=== PATIENT | male | born 1930 | race Caucasian/White ===

== ENCOUNTER 2018-12-12 12:21 | Emergency (ER) | payer OTHER, SELFPAY ==
[~2018-12-12 12:21] MED LIST: ISOVUE-370 76%-LOCM 1 ML ONE
[2018-12-12 12:59] LABS: #Eosinphils 0.1 thou/uL (0.0-0.7); #Lymphocytes 2.2 thou/uL (1.20-3.40); #Monocytes 0.3 thou/uL (0.11-0.59); #Neutrophils 10.7 thou/uL (1.40-6.50); %Basophils 0.4 % (0.0-1.0); %Eosinophils 0.6 % (0.0-10.0); %Lymphocytes 16.5 % (21.0-51.0); %Monocytes 2.3 % (0.0-10.0); %Neutrophils 80.3 % (42.0-75.0); Mean Corpuscular HGB CONC 34.1 g/dL (32.0-36.0); Mean Corpuscular Hemoglobin 29.7 pg (27.0-31.0); Mean Platelet Volume 6.7 fL (7.4-10.4); Platelet Count 369 thou/uL (130-400); RBC Distribution Width 12.5 % (11.5-14.5); Red Blood Cell (RBC) Count 5.06 mill/uL (4.70-6.10); White Blood Cell (WBC) Count 13.3 thou/uL (4.8-10.8)
--- NOTE | 2018-12-12 13:52 | RAD ---
EXAM: CHEST ONE VIEW: 12/12/18 HISTORY: Hypoxia, nausea, vomiting, diarrhea, wheezing. COMPARISON: None. FINDINGS: Increased bronchovascular markings noted bilaterally particularly in the infrahilar regions. Old gran ulomatous disease. I cannot exclude the possibility of some minimal bibasilar acute parenchymal skinner es including atypical pneumonia or pneumonitis and/or some subsegmental atelectasis. Upper lung zones appear clear. Heart size is within normal limits. IMPRESSION: 1. Increased markings in the infrahilar regions bilaterally, nonspecific as above. 2. Old granulomatous disease. 3. Atherosclerosis o the aorta. 4. No old studies for comparison. If there is concern for acute pneumonitis, treatment and short term follow-up for clearing or stabili ty is suggested. POS: OFF
[2018-12-12] MEDS ORDERED: Sodium Chloride 0.9% 100 ML ONE (13:56)
[2018-12-12] MEDS ORDERED: Cefepime 2 GM VIAL ONE (13:56)
[2018-12-12] MEDS ORDERED: metroNIDAZOLE 500 MG/100 ML BAG ONE (13:57)
[2018-12-12 13:59] LABS: Bilirubin Negative (Negative); Blood, Urine Negative (Negative); Clarity Clear (Clear); Glucose, Urine (Dipstick) 200 mg/dL (Negative); Leukocyte Negative Leu/uL (Negative); Nitrite Negative (Negative); Protein, Urine (Dipstick) 20 mg/dL (Neg-Trace)
[2018-12-12 14:31] LABS: ALT (SGPT) 11 U/L (8-55); AST (SGOT) 20 U/L (5-34); Albumin 3.9 g/dL (3.4-4.8); Alkaline Phosphatase 85 U/L (40-150); Anion Gap 19 mmol/L (10-20); BUN (Urea Nitrogen) 27 mg/dL (8.4-25.7); Bilirubin, Total 0.7 mg/dL (0.2-1.2); Calc. Creatinine Clearance 0 mL/min (70-130); Calcium 8.3 mg/dL (7.8-10.44); Carbon Dioxide 15 mmol/L (23-31); Chloride 105 mmol/L (98-107); Estimated GFR-MDRD 39; Glucose 351 mg/dL (83-110); Potassium 3.9 mmol/L (3.5-5.1); Protein, Total 6.9 g/dL (5.8-8.1); Sodium 135 mmol/L (136-145)
--- NOTE | 2018-12-12 15:33 | CT ---
CT Brain WO Con History: Altered mental status Comparison: CT brain December 2017 Findings: No acute hemorrhage or infarct. Moderate atrophy. Old lacunar infarcts. No midline shift. No mass effect. The paranasal sinuses and mastoids are clear. Globes are intact. Impression: Chronic findings. No acute intracranial abnormality.
--- NOTE | 2018-12-12 15:39 | CT ---
CT Abdomen Pelvis W Con History: Abdominal pain. Nausea and vomiting Comparison: None. Findings: Patchy opacities in both lower lobes. 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 Large sliding hiatal hernia. There is a diverticulum near the gastric fundus. Enlarged perigastric ly mph nodes which are herniated in the thoracic cavity. Liver is unremarkable as well as the spleen. Pancreas has mild fatty atrophy throughout its parenchym a. No intrahepatic or extra hepatic biliary dilatation. The rectum and rectosigmoid junction is markedly thickened with large volume gas and stool there is a lso stranding in the sigmoid mesentery. This suggests high-grade colitis and proctitis. Mild edema within the mesorectal fat. Unformed stool throughout the colon. Inferior mesenteric artery appears be patent at least proximally. No free intraperitoneal gas. Moderate distention of the urinary bladder. No retroperitoneal periaorti c adenopathy. Hypodensity anterior cortex interpolar left kidney with fluid characteristics of a cyst. Same is true for left inferior renal hypodensity. No aneurysmal dilatation of the aorta. Bilateral fat-containing direct inguinal hernias. Impression: 1. Abnormal dilatation of the rectum and rectosigmoid junction with surrounding edema suggesting coli tis. There is unformed stool throughout the colon also corroborating this diagnosis. Given the large dilatation of the gas and stool filled rectum, disimpaction may be beneficial. 2. Scattered opacities within both lower lobes with large sliding hiatal hernia likely aspiration pne umonia.
[2018-12-12] MEDS ORDERED: HumaLOG 300 UNITS/3 ML VIAL SC PRN (15:40)
[2018-12-12] MEDS ORDERED: Acetaminophen 325 MG TAB PO PRN (15:40)
[2018-12-12] MEDS ORDERED: Acetaminophen 650 MG Suppository PR PRN (15:40)
[2018-12-12] MEDS ORDERED: Ondansetron PF 4 MG/2 ML Vial IVP PRN (15:40)
[2018-12-12] MEDS ORDERED: Guaifenesin DM 100-10/5 ML UDCUP PO PRN (15:40)
[2018-12-12] MEDS ORDERED: Dextrose 5% in Water 1,000 ML IV PRN (15:40)
[2018-12-12] MEDS ORDERED: Dextrose 50% Abboject 50 ML SYRINGE SLOW IVP PRN (15:40)
[2018-12-12] MEDS ORDERED: Sodium Chloride 0.9% 1,000 ML IV SCH (15:45)
--- NOTE | 2018-12-12 16:31 | HP ---
PRIMARY CARE PHYSICIAN: [facility]. REASON FOR ADMISSION: Sepsis, gastroenteritis, [id number] dehydration, acute metabolic acidosis, acute kidney injury, diabetes mellitus type 2 uncontrolled. HISTORY OF PRESENTING ILLNESS: Please note majority of this history is obtained by talking to the ER physician and the patient's sister and brother at bedside as the patient is not oriented at present. He apparently went to [employer] and had a hamburger and drank strawberry yogurt yesterday. Around midnight, the patient started to have profuse diarrhea. He started to vomit this morning and felt very nauseous. His caregiver went to check on him this morning. He lives alone in [place]. The caregiver texted the patient's sister saying he did not look good and had diarrhea. After an hour or 2, the patient started to have more episodes of vomiting, retching, and slumped in his chair, he could not get up or walk. Then the caregiver called EMS and the patient was brought to emergency room. He normally ambulates by himself and does all his activities of daily living at home. He follows up with [facility] here in [place]. He had a temperature of 99 degrees in the ER. No complaints of chest pain, palpitation, PND, or orthopnea. The patient is currently slowly waking up and is able to recognize his son, and says that he has two children, both boy and a girl which are accurate. He trails off and soon falls asleep. 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 CURRENT MEDICATIONS: The patient is on; 1. Flomax 0.4 mg p.o. at bedtime. 2. Finasteride 1 mg p.o. q.a.m. 3. Aspirin 81 mg p.o. daily. 4. Glipizide 5 mg p.o. twice daily. 5. Amlodipine 2.5 mg p.o. daily. The daughter at bedside is trying to get [facility] to fax over his current med list to the ER. PERSONAL HISTORY: Quit smoking more than 10 years ago. Does not abuse alcohol or drugs. He lives alone in [place]. FAMILY HISTORY: Mother in a snf. She had osteoarthritis. She was in her late 70s. Father of lung cancer at the age of 72 years, exposed to asbestos and was a heavy smoker as well. CODE STATUS: Full. Power of peer support specialist is his daughter, Ms. Harini Fuller, number to reach her is [phone]. REVIEW OF SYSTEMS: Cannot be obtained as the patient is very lethargic and is not oriented. PHYSICAL EXAMINATION: GENERAL: The patient is an 88-year-old male, who is currently very lethargic and is not oriented. VITAL SIGNS: Blood pressure 146/80, pulse 120 per minute, respiratory rate 18 per minute, temperature 97.8 degrees Fahrenheit, saturating 93% on room air. NECK: Supple. No elevated JVD. HEENT: Eyes; extraocular muscles intact. Pupils reacting to light. Oral cavity, mucous membranes are dry. No exudates or congestion. CARDIOVASCULAR: S1 and S2 heard. Tachycardic. RESPIRATORY: Air entry 1+ bilateral. Scattered rhonchi plus. No rales or wheezes. ABDOMEN: Soft, bowel sounds heard. Mild tenderness in the left lower quadrant area. No rigidity or guarding. EXTREMITIES: Mild peripheral edema. No calf tenderness. VASCULAR: Peripheral pulses 1+ bilateral. No ischemic ulcerations or gangrene. CENTRAL NERVOUS SYSTEM: No gross focal deficits noted. The patient is very lethargic. Responds minimally to questions and there is no focal sign seen. PSYCHIATRIC: Cannot be assessed as the patient is not oriented at present. LABORATORY DATA: CT brain without contrast shows no acute intracranial abnormality. Chest x-ray shows increased infrahilar markings which are nonspecific. CT abdomen and pelvis with contrast done shows abnormal dilatation of rectum and rectosigmoid area with surrounding edema suggesting colitis. There was large dilatation of gas and stool-filled rectum, disimpaction may be beneficial. Also findings of large sliding hiatal hernia were noted. UA does not show any evidence of infection. Serum bicarb 15, BUN 27, creatinine 1.6, serum glucose 351, lactic acid 5.1. Liver enzymes within normal limits. Albumin is 3.9. White count of 13, hemoglobin and hematocrit of 15 and 44, platelet count 369 with 80% neutrophils, MCV is 87. EKG done shows sinus tach at 127 beats per minute. There is poor R-wave progression and nonspecific ST-T wave changes. CLINICAL IMPRESSION AND PLAN: The patient will be admitted to IMCU for sepsis, [id number] dehydration, acute metabolic encephalopathy, acute kidney injury, metabolic acidosis, possible gastroenteritis versus food poisoning with all symptoms starting yesterday evening. Blood and urine cultures have been obtained in the ER. We will obtain stool cultures. He will be on meropenem 1 g q.8 hourly. The patient has received a total of 2 L of IV fluid in the ER. We will continue him on normal saline at 100 mL/h. We will continue aspirin, Flomax, Proscar as before. We will keep him on clear liquid diet and hopefully after fluid resuscitation, the patient will wake up more. He will be closely monitored in IMCU. Addendum: Patient was transferred to [facility] as they accepted him late evening. Please note this is a same day admit and discharge summary. The above was arranged by ER physician and the transport was done around 7.45pm per ER charge Nurse. Job ID: [id number] [id number]
[2018-12-12 19:43] LABS: Lactic Acid 3.3 mmol/L (0.5-2.2)
[2018-12-12] MEDS ORDERED: Famotidine 20 MG TAB PO SCH (21:00)
[2018-12-12] MEDS ORDERED: Tamsulosin HCl 0.4 MG CAP PO SCH (21:00)
[2018-12-12 21:49] LABS: Lactic Acid 2.8 mmol/L (0.5-2.2)
[2018-12-12] MEDS ORDERED: Meropenem 1 GM in Sodium Chloride 0.9% 100 ML IVPB SCH (22:00)
[2018-12-13] MEDS ORDERED: Finasteride 5 MG TAB PO SCH (09:00)
[2018-12-13] MEDS ORDERED: Enoxaparin Sodium 30 MG/0.3 ML SYRINGE SC SCH (09:00)
[2018-12-13] MEDS ORDERED: Aspirin Chewable 81 MG TAB PO SCH (09:00)
== END 2018-12-12 22:50 ==
LOC: ERS 12:21
DX: A41.9 Sepsis, unspecified organism (principal); R65.21 Severe sepsis with septic shock; A09 Infectious gastroenteritis and colitis, unspecified; E11.9 Type 2 diabetes mellitus without complications; E78.5 Hyperlipidemia, unspecified; I10 Essential (primary) hypertension; Z86.73 Personal history of transient ischemic attack (TIA), and cerebral infarction without residual deficits; Z87.891 Personal history of nicotine dependence; Z79.899 Other long term (current) drug therapy
CPT/HCPCS: 36415; 36416; 51701; 70450; 71045; 74177; 80053; 81003; 83605; 85025; 87040; 87086; 87324; 87449; 96361; 96365; 96367; J0692; J3370; J3490; J7050; Q9966